=== PATIENT | male | born 1975 | race Caucasian/White ===

== ENCOUNTER 2017-12-03 18:48 | Emergency (ER) | payer SELFPAY ==
[2014-08-01 09:44] VITALS: BMI 51.6
[~2017-12-03 18:48] MED LIST: AMPH20TA18 PO; BUP100 PO; IBUP400T13 PO; NALT50TA15 PO; TRAZ-133 PO
--- NOTE | 2017-12-03 19:00 | ER Report ---
History and Physical Time Seen By MD: 19:00 HPI/ROS Patient is a 42 y.o. male reporting chest pain and lightheadedness for 1 day. Symptoms do not seem tied to a specific activity. His mother is present and reports that he is frequently intoxicated but usually will tell me when he has been drinking ETOH. He denies this today. No prior history of cardiac or resp issues. No SOB, fevers, chills, N/V/D or constipation. Patient denies neuro issues. He is a 1/2 ppd smoker and drinks 1 pint of vodka most days. He denies illicit drug use. He started a new medication for his BP two days ago but cannot recall what it is. Allergies: Coded Allergies: No Known Drug Allergies (Unverified , 10/15/16) Home Meds Unable to Obtain Active Prescriptions or Reported Meds Past Medical/Surgical History depression, HTN Hx Smoking: Yes Smoking Status: Current: Every Day Smoker Hx Substance Use Disorder: Yes Hx Alcohol Use: Yes Constitutional Vital Sign - Last 24 Hours 12/03/17 12/03/17 12/03/17 12/03/17 18:58 18:59 19:01 19:02 Temp 97.6 Pulse 116 Resp 18 B/P (MAP) 139/77 139/77 (97) 146/98 (114) 140/92 (108) O2 Delivery Room Air 12/03/17 12/03/17 12/03/17 12/03/17 19:03 19:18 19:25 19:32 Pulse 112 101 Resp 60 B/P (MAP) 124/75 (91) Pulse Ox 92 86 O2 Flow Rate 2.0 12/03/17 12/03/17 12/03/17 12/03/17 19:33 19:45 19:50 20:00 Pulse 98 88 B/P (MAP) 132/74 (93) 121/68 (85) Pulse Ox 94 94 12/03/17 12/03/17 12/03/17 12/03/17 20:05 20:15 20:20 20:30 Pulse 97 99 B/P (MAP) 129/67 (87) ???/??? (1665) Pulse Ox 93 98 12/03/17 12/03/17 12/03/17 12/03/17 20:35 20:45 20:50 21:00 Pulse ??? 100 B/P (MAP) 129/80 (96) 125/76 (92) Pulse Ox 98 12/03/17 21:05 Pulse 97 Pulse Ox 96 Intake and Output 12/03/17 12/03/17 12/04/17 15:00 23:00 07:00 Intake Total 1000 ml Balance 1000 ml Physical Exam General: Calm and under no acute distress Eyes: EOM and pupillary response intact but delayed Resp: Clear and equal bilaterally CV: RRR, no murmurs, rubs, or gallops. Distal pulses strong and equal. Abdomen: Tender in RUQ, active bowel sounds x4Q Neuro: GCS 13, oriented to person and place. CN II-XII grossly intact Medical Decision Making Data Points Result Diagram: 12/03/17193912/03/171939 Laboratory Hematology Test 12/03/17 19:40 12/03/17 21:20 Red Blood Count 5.42 M/uL (4.00-5.60) Mean Corpuscular Volume 89.3 fL (80.0-96.0) Mean Corpuscular Hemoglobin 30.9 pg (26.0-33.0) Mean Corpuscular Hemoglobin Concent 34.6 g/dL (32.0-36.0) Red Cell Distribution Width 14.9 % (11.5-14.5) Mean Platelet Volume 8.2 fL (7.2-11.1) Neutrophils (%) (Auto) 56.5 % (39.4-72.5) Lymphocytes (%) (Auto) 28.3 % (17.6-49.6) Monocytes (%) (Auto) 12.1 % (4.1-12.4) Eosinophils (%) (Auto) 1.8 % (0.4-6.7) Basophils (%) (Auto) 1.3 % (0.3-1.4) Nucleated RBC Relative Count (auto) 0.1 /100WBC Neutrophils # (Auto) 3.2 K/uL (2.0-7.4) Lymphocytes # (Auto) 1.6 K/uL (1.3-3.6) Monocytes # (Auto) 0.7 K/uL (0.3-1.0) Eosinophils # (Auto) 0.1 K/uL (0.0-0.5) Basophils # (Auto) 0.1 K/uL (0.0-0.1) Nucleated RBC Absolute Count (auto) 0.00 K/uL Sodium Level 137 mmol/L (137-145) Potassium Level 3.5 mmol/L (3.5-5.0) Chloride Level 98 mmol/L (98-107) Carbon Dioxide Level 24 mmol/L (22-30) Blood Urea Nitrogen 6 mg/dl (9-21) Creatinine 0.80 mg/dl (0.66-1.25) Glomerular Filtration Rate Calc > 60.0 Random Glucose 124 mg/dl (75-110) Calcium Level 9.2 mg/dl (8.4-10.2) Total Bilirubin 0.4 mg/dl (0.2-1.3) Aspartate Amino Transf (AST/SGOT) 24 U/L (0-35) Alanine Aminotransferase (ALT/SGPT) 32 U/L (0-56) Alkaline Phosphatase 82 U/L (0-126) Troponin I < 0.012 ng/ml B-Type Natriuretic Peptide 8 pg/ml (0-100) Total Protein 7.0 gm/dl (6.3-8.2) Albumin 3.8 g/dl (3.5-5.0) Serum Alcohol 10 mg/dl Urine Color Colorless Urine Clarity Clear Urine pH 7.0 pH (4.8-9.5) Urine Specific [place] 1.002 Urine Protein Negative mg/dL (NEGATIVE) Urine Glucose (UA) Negative mg/dL (NEGATIVE) Urine Ketones 20 mg/dL (NEGATIVE) Urine Blood Negative (NEGATIVE) Urine Nitrite Negative (NEGATIVE) Urine Bilirubin Negative (NEGATIVE) Urine Urobilinogen Negative mg/dL (0.2-1.9) Urine Leukocyte Esterase Negative (NEGATIVE) Urine RBC None /HPF (0-2/HPF) Urine WBC None /HPF (0-5/HPF) Urine Squamous Epithelial Cells None /LPF (</=FEW) Urine Bacteria Negative /HPF (NONE-FEW) Urine Mucus None /HPF (NONE-FEW) Urine Opiates Screen Negative Urine Barbiturates Screen Negative Ur Tricyclic Antidepressants Screen Negative Urine Phencyclidine Screen Negative Urine Amphetamines Screen Negative Urine Benzodiazepines Screen Negative Urine Cocaine Screen Negative Urine Cannabinoids Screen Negative Chemistry Test 12/03/17 19:40 12/03/17 21:20 White Blood Count 5.6 k/uL (4.5-11.0) Red Blood Count 5.42 M/uL (4.00-5.60) Hemoglobin 16.8 g/dL (14.0-18.0) Hematocrit 48.4 % (42.0-52.0) Mean Corpuscular Volume 89.3 fL (80.0-96.0) Mean Corpuscular Hemoglobin 30.9 pg (26.0-33.0) Mean Corpuscular Hemoglobin Concent 34.6 g/dL (32.0-36.0) Red Cell Distribution Width 14.9 % (11.5-14.5) Platelet Count 223 K/uL (150-450) Mean Platelet Volume 8.2 fL (7.2-11.1) Neutrophils (%) (Auto) 56.5 % (39.4-72.5) Lymphocytes (%) (Auto) 28.3 % (17.6-49.6) Monocytes (%) (Auto) 12.1 % (4.1-12.4) Eosinophils (%) (Auto) 1.8 % (0.4-6.7) Basophils (%) (Auto) 1.3 % (0.3-1.4) Nucleated RBC Relative Count (auto) 0.1 /100WBC Neutrophils # (Auto) 3.2 K/uL (2.0-7.4) Lymphocytes # (Auto) 1.6 K/uL (1.3-3.6) Monocytes # (Auto) 0.7 K/uL (0.3-1.0) Eosinophils # (Auto) 0.1 K/uL (0.0-0.5) Basophils # (Auto) 0.1 K/uL (0.0-0.1) Nucleated RBC Absolute Count (auto) 0.00 K/uL Glomerular Filtration Rate Calc > 60.0 Calcium Level 9.2 mg/dl (8.4-10.2) Total Bilirubin 0.4 mg/dl (0.2-1.3) Aspartate Amino Transf (AST/SGOT) 24 U/L (0-35) Alanine Aminotransferase (ALT/SGPT) 32 U/L (0-56) Alkaline Phosphatase 82 U/L (0-126) Troponin I < 0.012 ng/ml B-Type Natriuretic Peptide 8 pg/ml (0-100) Total Protein 7.0 gm/dl (6.3-8.2) Albumin 3.8 g/dl (3.5-5.0) Serum Alcohol 10 mg/dl Urine Color Colorless Urine Clarity Clear Urine pH 7.0 pH (4.8-9.5) Urine Specific [place] 1.002 Urine Protein Negative mg/dL (NEGATIVE) Urine Glucose (UA) Negative mg/dL (NEGATIVE) Urine Ketones 20 mg/dL (NEGATIVE) Urine Blood Negative (NEGATIVE) Urine Nitrite Negative (NEGATIVE) Urine Bilirubin Negative (NEGATIVE) Urine Urobilinogen Negative mg/dL (0.2-1.9) Urine Leukocyte Esterase Negative (NEGATIVE) Urine RBC None /HPF (0-2/HPF) Urine WBC None /HPF (0-5/HPF) Urine Squamous Epithelial Cells None /LPF (</=FEW) Urine Bacteria Negative /HPF (NONE-FEW) Urine Mucus None /HPF (NONE-FEW) Urine Opiates Screen Negative Urine Barbiturates Screen Negative Ur Tricyclic Antidepressants Screen Negative Urine Phencyclidine Screen Negative Urine Amphetamines Screen Negative Urine Benzodiazepines Screen Negative Urine Cocaine Screen Negative Urine Cannabinoids Screen Negative Toxicology Test 12/03/17 19:40 12/03/17 21:20 Serum Alcohol 10 mg/dl Urine Opiates Screen Negative Urine Barbiturates Screen Negative Ur Tricyclic Antidepressants Screen Negative Urine Phencyclidine Screen Negative Urine Amphetamines Screen Negative Urine Benzodiazepines Screen Negative Urine Cocaine Screen Negative Urine Cannabinoids Screen Negative Urinalysis Test 12/03/17 21:20 Urine Color Colorless Urine Clarity Clear Urine pH 7.0 pH (4.8-9.5) Urine Specific [place] 1.002 Urine Protein Negative mg/dL (NEGATIVE) Urine Glucose (UA) Negative mg/dL (NEGATIVE) Urine Ketones 20 mg/dL (NEGATIVE) Urine Blood Negative (NEGATIVE) Urine Nitrite Negative (NEGATIVE) Urine Bilirubin Negative (NEGATIVE) Urine Urobilinogen Negative mg/dL (0.2-1.9) Urine Leukocyte Esterase Negative (NEGATIVE) Urine RBC None /HPF (0-2/HPF) Urine WBC None /HPF (0-5/HPF) Urine Squamous Epithelial Cells None /LPF (</=FEW) Urine Bacteria Negative /HPF (NONE-FEW) Urine Mucus None /HPF (NONE-FEW) EKG/Imaging EKG Interpretation 12 lead EKG: Rhythm: Sinus tachycardia with a ventricular rate of 102 bpm [place]: normal QRS: normal ST segments: normal Imaging CHEST PA AND LAT Additional pertinent History: Chest pain COMPARISON STUDIES: none FINDINGS: Support lines and catheters: None Lungs and Pleura: Lung anderson well expanded with no infiltrates or consolidations. No parenchymal mass lesions are seen. There are no effusions Heart and vasculature: Negative. Gavi and Mediastinum: Negative. Bones and Chest wall: Negative. Upper Abdomen: Negative. IMPRESSION: 1. Negative chest for acute cardiopulmonary disease. Report Dictated By: Pipe Santiago MD at 12/03/2017 9:05 PM Report E-Signed By: Pipe Santiago MD at 12/03/2017 9:06 PM ED Course/Re-evaluation ED Course Patient admitted to ER with c/o chest pain and lightheadedness. Patient examined. IV with NS started for fluid resuscitation. CBC w/ diff, CMP, Troponin I, BNP, ETOH, and urinary tox screen order, showing recent ETOH use. CXR and EKG negative. Patient discharged with ETOH education. This does not appear to be related to a cardiac event. We'll go ahead and discharge patient home. He is to continue with normal medications, he is to follow-up with his primary care provider in the next 3-5 days. He is return to the emergency room if condition worsens. I would like patient to limit alcohol consumption. I discussed the patient and his family verbalized understanding and agreement with plan. Decision to Disposition Date: Dec 03, 2017 Decision to Disposition Time: 21:21 Depart Departure Latest Vital Signs Vital Signs Date Time Temp Pulse Resp B/P (MAP) Pulse Ox O2 Delivery O2 Flow Rate FiO2 12/03/17 21:05 97 96 12/03/17 21:00 125/76 (92) 12/03/17 19:25 2.0 12/03/17 19:18 60 12/03/17 18:58 97.6 Room Air Impression: Primary Impression: Chest pain Condition: Improved Disposition: HOME OR SELF-CARE New Scripts Unable to Obtain Active Prescriptions or Reported Meds Patient Instructions: Chest Pain (ED) Additional Instructions: Increase fluid intake. Get plenty of rest. Limit activity by pain. Continue with current medications. Follow up with your primary care provider in the next 3-5 days. Return to the ER if condition worsens. This doesn't appear to be cardiac related, but I would like you to follow up with your primary care provider to find the cause. Problem Qualifiers Primary Impression: Chest pain Chest pain type: other chest pain Qualified Codes: R07.89 - Other chest pain RHYS RUSS Dec 03, 2017 19:00
[2017-12-03] MEDS ORDERED: NS(*) 0.9% 1000 ML BAG 1,000 ML IV ONE (19:20)
--- NOTE | 2017-12-03 19:36 | EKG ---
FACILITY: [facility] PATIENT NAME: VENTURA ENRIQUE : [id number] MR: [id number] V: [id number] EXAM DATE: ORDERING PHYSICIAN: RHYS RUSS TECHNOLOGIST: PRADIP Test Reason : CHEST PAIN Blood Pressure : / mmHG Vent. Rate : 102 BPM Atrial Rate : 102 BPM P-R Int : 144 ms QRS Dur : 094 ms QT Int : 370 ms P-R-T Axes : 058 080 067 degrees QTc Int : 482 ms Sinus tachycardia No acute appearing findings Confirmed by MIKEY ANNA ([id number] on 12/04/2017 6:11:10 AM Referred By: Confirmed By:MIKEY ANNA
[2017-12-03 19:46] LABS: PLATELET COUNT, AUTOMATED 223 K/uL (150-450)
[2017-12-03 21:00] VITALS: BP 125/76
--- NOTE | 2017-12-03 21:11 | RADIOLOGY IMAGING REPORT ---
FACILITY: [facility] PATIENT NAME: Sabas Dalton : 1975 MR: [id number] V: [id number] EXAM DATE: ORDERING PHYSICIAN: RHYS RUSS TECHNOLOGIST: Location: [facility] [place] Patient: Sabas Dalton : 1975 Visit/Account:[id number] Date of Sevice: 12/03/2017 CHEST PA AND LAT Additional pertinent History: Chest pain COMPARISON STUDIES: none FINDINGS: Support lines and catheters: None Lungs and Pleura: Lung anderson well expanded with no infiltrates or consolidations. No parenchymal ma ss lesions are seen. There are no effusions Heart and vasculature: Negative. Gavi and Mediastinum: Negative. Bones and Chest wall: Negative. Upper Abdomen: Negative. IMPRESSION: 1. Negative chest for acute cardiopulmonary disease. Report Dictated By: Pipe Santiago MD at 12/03/2017 9:05 PM Report E-Signed By: Pipe Santiago MD at 12/03/2017 9:06 PM WSN:[id number]
== END 2017-12-03 21:31 | disposition home or self-care (01) ==
LOC: ER 19:03
DX: R07.89 Other chest pain (principal); F17.210 Nicotine dependence, cigarettes, uncomplicated; F10.10 Alcohol abuse, uncomplicated; R00.0 Tachycardia, unspecified
CPT/HCPCS: 80305; 80320; 81001; 83880; 84484; 85025; 93005; 96360; 96361; 99284; J7030; 71046; 82040; 82247; 82310; 82374; 82435; 82565; 82947; 84075; 84132; 84155; 84295; 84450; 84460; 84520

== ENCOUNTER → 2018-06-09 | Outpatient (REF) ==
[2014-08-01 09:44] VITALS: BMI 51.6
--- NOTE | 2018-06-09 13:45 | RADIOLOGY IMAGING REPORT ---
FACILITY: [facility] PATIENT NAME: Sabas Dalton : 1975 MR: [id number] V: [id number] EXAM DATE: ORDERING PHYSICIAN: JAVY KILPATRICK TECHNOLOGIST: Location: [facility] [place] Patient: Sabas Dalton : 1975 Visit/Account:[id number] Date of Sevice: 06/09/2018 Exam type: FINGER RIGHT 5TH DIGIT History: Hyperextended fourth and fifth fingers with pain and swelling Comparison: None. Findings: Three views of the right finger demonstrate mild soft tissue swelling although no evidence of acute f racture dislocation or significant arthritic change seen IMPRESSION: 1. Mild soft tissue spine about the right fifth finger although no evidence of acute fracture or dis location seen Report Dictated By: Gabrielle Umana MD at 06/09/2018 1:32 PM Report E-Signed By: Gabrielle Umana MD at 06/09/2018 1:41 PM WSN:[email or web address]
--- NOTE | 2018-06-09 13:48 | RADIOLOGY IMAGING REPORT ---
[place] [facility] [place] NAME[place] Sabas Dalton : 1975 MR: [id number] V: [id number] EXAM DATE: ORDERING PHYSICIAN: JAVY KILPATRICK [place]CHNOLOG[place]: [place] [facility] [place] Sabas [place] : 1975 Visit/Account:[id number] Date of Sevice: 06/09/2018 Exam type: FINGER RIGHT 4TH DIGIT History: Hyperexpansion of the right fourth and fifth fingers with swelling and pain Comparison: None. Findings: There is moderate soft tissue swelling surrounding the PIP joint of the right fourth finger. No unde rlying fracture dislocation is seen although the PIP joint on the right fourth finger is obscured on the lateral view by the overlapping proximal phalanges IMPRESSION: 1. Moderate soft tissue spine about the. PIP joint of the right fourth finger although no gross vadim dence of acute fracture or dislocation Report Dictated By: Gabrielle Umana MD at 06/09/2018 1:41 PM Report E-Signed By: Gabrielle Umana MD at 06/09/2018 1:44 PM WSN:[email or web address]
== END ==
LOC: RAD 10:30
PROVIDERS: ATTEND Family Medicine
DX: M79.644 Pain in right finger(s) (principal); M25.541 Pain in joints of right hand

== ENCOUNTER 2018-12-06 16:02 | Emergency (ER) | payer SELFPAY ==
[2014-08-01 09:44] VITALS: Wt 190.7 kg
--- NOTE | 2018-12-06 16:24 | ER Report ---
History and Physical Time Seen By MD: 16:24 Hx. of Stated Complaint: intoxicated HPI/ROS CHIEF COMPLAINT: Alcohol intoxication HISTORY OF PRESENT ILLNESS: 43-year-old male patient presents to emergency room with complaint of alcohol intoxication. Patient states he believes is very dehydrated. He states he drank 3 pints of vodka. Patient states that he has no interest in going to [facility] this time. He denies any fevers, chills, nausea, vomiting or diarrhea. Patient denies any back pain. Patient states that he has been drinking since 7:00 this morning. Patient's family states that he has a problem with alcohol abuse. Stating that he does not drink everyday, but when he does drink he drinks heavily. They state that he has had multiple falls because of that. Due to his size they're concerned about him injuring himself or others. His mother states that she would prefer that he stay, however if he chose not to be admitted that he is not welcome in her home. He is supposed to discuss rehabilitation options with [facility] on according to family. REVIEW OF SYSTEMS: Respiratory: No cough, no dyspnea. Cardiovascular: No chest pain, no palpitations. Gastrointestinal: No vomiting, no abdominal pain. Musculoskeletal: No back pain. Allergies: Coded Allergies: No Known Drug Allergies (Unverified , 10/15/16) Home Meds Reported Medications Ibuprofen (ADVIL) 100 Mg Tablet, 1 TAB PO Q6H 12/06/18 Losartan Potassium (LOSARTAN POTASSIUM) 50 Mg Tablet, 50 MG PO QDAY 12/06/18 Citalopram Hydrobromide (CELEXA) 40 Mg Tablet, 50 MG PO QDAY, #5 TAB 12/06/18 Past Medical/Surgical History Patient has a past medical history of reflux, Claritin fracture, tinnitus, substance abuse, alcohol abuse, depression. Patient has no pertinent surgical history. Patient has a family medical history of cancer, CAD, diabetes, depression, alcoholism. Reviewed Nurses Notes: Yes Hx Smoking: Yes Smoking Status: Current: Every Day Smoker Hx Substance Use Disorder: Yes Hx Alcohol Use: Yes (every other day heavy ) Constitutional Vital Sign - Last 24 Hours 12/06/18 12/06/18 12/06/18 12/06/18 16:02 16:16 16:17 16:17 Temp 98.0 Pulse ??? 89 90 Resp 18 B/P (MAP) 147/90 (109) 147/90 Pulse Ox 84 84 O2 Delivery Room Air 12/06/18 12/06/18 12/06/18 12/06/18 16:32 16:47 17:02 17:05 Pulse 83 92 85 Resp 18 25 B/P (MAP) 123/79 (94) Pulse Ox 93 95 12/06/18 12/06/18 12/06/18 12/06/18 17:17 17:32 17:35 17:36 Pulse 86 78 Resp 19 23 B/P (MAP) 108/83 (91) O2 Flow Rate 2.0 12/06/18 12/06/18 17:47 18:00 Pulse 81 Resp 14 B/P (MAP) ???/??? (1665) Physical Exam General Appearance: The patient is alert, has no immediate need for airway protection and no current signs of toxicity. Patient smells of alcohol. Respiratory: Chest is non tender, lungs are clear to auscultation. Cardiac: regular rate and rhythm Gastrointestinal: Abdomen is soft and non tender, no masses, bowel sounds normal. Musculoskeletal: Neck: Neck is supple and non tender. Extremities have full range of motion and are non tender. Skin: No rashes or lesions. DIFFERENTIAL DIAGNOSIS: After history and physical exam differential diagnosis was considered for occult intoxication, alcohol abuse, alcohol dependence. Medical Decision Making Data Points Result Diagram: 12/06/18 1708 12/06/18 170 Laboratory Hematology Test 12/06/18 16:50 12/06/18 17:08 Urine Color Straw Urine Clarity Clear Urine pH 6.0 pH (4.8-9.5) Urine Specific [place] 1.003 Urine Protein Negative mg/dL (NEGATIVE) Urine Glucose (UA) Negative mg/dL (NEGATIVE) Urine Ketones Negative mg/dL (NEGATIVE) Urine Blood Negative (NEGATIVE) Urine Nitrite Negative (NEGATIVE) Urine Bilirubin Negative (NEGATIVE) Urine Urobilinogen Negative mg/dL (0.2-1.9) Urine Leukocyte Esterase Negative (NEGATIVE) Urine RBC <1 /HPF (0-2/HPF) Urine WBC None /HPF (0-5/HPF) Urine Squamous Epithelial Cells None /LPF (</=FEW) Urine Bacteria Negative /HPF (NONE-FEW) Urine Mucus None /HPF (NONE-FEW) Urine Opiates Screen Negative Urine Barbiturates Screen Negative Ur Tricyclic Antidepressants Screen Negative Urine Phencyclidine Screen Negative Urine Amphetamines Screen Negative Urine Benzodiazepines Screen Negative Urine Cocaine Screen Negative Urine Cannabinoids Screen Negative Red Blood Count 5.21 M/uL (4.00-5.60) Mean Corpuscular Volume 96.2 fL (80.0-96.0) Mean Corpuscular Hemoglobin 32.1 pg (26.0-33.0) Mean Corpuscular Hemoglobin Concent 33.4 g/dL (32.0-36.0) Red Cell Distribution Width 14.7 % (11.5-14.5) Mean Platelet Volume 8.2 fL (7.2-11.1) Neutrophils (%) (Auto) 60.3 % (39.4-72.5) Lymphocytes (%) (Auto) 25.3 % (17.6-49.6) Monocytes (%) (Auto) 11.0 % (4.1-12.4) Eosinophils (%) (Auto) 2.2 % (0.4-6.7) Basophils (%) (Auto) 1.2 % (0.3-1.4) Nucleated RBC Relative Count (auto) 0.1 /100WBC Neutrophils # (Auto) 3.5 K/uL (2.0-7.4) Lymphocytes # (Auto) 1.5 K/uL (1.3-3.6) Monocytes # (Auto) 0.6 K/uL (0.3-1.0) Eosinophils # (Auto) 0.1 K/uL (0.0-0.5) Basophils # (Auto) 0.1 K/uL (0.0-0.1) Nucleated RBC Absolute Count (auto) 0.01 K/uL Sodium Level 141 mmol/L (137-145) Potassium Level 4.4 mmol/L (3.5-5.0) Chloride Level 108 mmol/L (98-107) Carbon Dioxide Level 25 mmol/L (22-30) Blood Urea Nitrogen 9 mg/dl (9-21) Creatinine 0.70 mg/dl (0.66-1.25) Glomerular Filtration Rate Calc > 60.0 Random Glucose 117 mg/dl (75-110) Calcium Level 8.7 mg/dl (8.4-10.2) Magnesium Level 2.2 mg/dl (1.7-2.2) Total Bilirubin < 0.1 mg/dl (0.2-1.3) Aspartate Amino Transf (AST/SGOT) 43 U/L (0-35) Alanine Aminotransferase (ALT/SGPT) 54 U/L (0-56) Alkaline Phosphatase 89 U/L (0-126) Total Protein 6.5 g/dl (6.3-8.2) Albumin 3.7 g/dl (3.5-5.0) Salicylates Level < 10 mg/L Salicylate Last Dose Date unk Acetaminophen Level < 10 ug/ml Serum Alcohol 341 mg/dl Chemistry Test 12/06/18 16:50 12/06/18 17:08 Urine Color Straw Urine Clarity Clear Urine pH 6.0 pH (4.8-9.5) Urine Specific [place] 1.003 Urine Protein Negative mg/dL (NEGATIVE) Urine Glucose (UA) Negative mg/dL (NEGATIVE) Urine Ketones Negative mg/dL (NEGATIVE) Urine Blood Negative (NEGATIVE) Urine Nitrite Negative (NEGATIVE) Urine Bilirubin Negative (NEGATIVE) Urine Urobilinogen Negative mg/dL (0.2-1.9) Urine Leukocyte Esterase Negative (NEGATIVE) Urine RBC <1 /HPF (0-2/HPF) Urine WBC None /HPF (0-5/HPF) Urine Squamous Epithelial Cells None /LPF (</=FEW) Urine Bacteria Negative /HPF (NONE-FEW) Urine Mucus None /HPF (NONE-FEW) Urine Opiates Screen Negative Urine Barbiturates Screen Negative Ur Tricyclic Antidepressants Screen Negative Urine Phencyclidine Screen Negative Urine Amphetamines Screen Negative Urine Benzodiazepines Screen Negative Urine Cocaine Screen Negative Urine Cannabinoids Screen Negative White Blood Count 5.8 k/uL (4.5-11.0) Red Blood Count 5.21 M/uL (4.00-5.60) Hemoglobin 16.8 g/dL (14.0-18.0) Hematocrit 50.1 % (42.0-52.0) Mean Corpuscular Volume 96.2 fL (80.0-96.0) Mean Corpuscular Hemoglobin 32.1 pg (26.0-33.0) Mean Corpuscular Hemoglobin Concent 33.4 g/dL (32.0-36.0) Red Cell Distribution Width 14.7 % (11.5-14.5) Platelet Count 241 K/uL (150-450) Mean Platelet Volume 8.2 fL (7.2-11.1) Neutrophils (%) (Auto) 60.3 % (39.4-72.5) Lymphocytes (%) (Auto) 25.3 % (17.6-49.6) Monocytes (%) (Auto) 11.0 % (4.1-12.4) Eosinophils (%) (Auto) 2.2 % (0.4-6.7) Basophils (%) (Auto) 1.2 % (0.3-1.4) Nucleated RBC Relative Count (auto) 0.1 /100WBC Neutrophils # (Auto) 3.5 K/uL (2.0-7.4) Lymphocytes # (Auto) 1.5 K/uL (1.3-3.6) Monocytes # (Auto) 0.6 K/uL (0.3-1.0) Eosinophils # (Auto) 0.1 K/uL (0.0-0.5) Basophils # (Auto) 0.1 K/uL (0.0-0.1) Nucleated RBC Absolute Count (auto) 0.01 K/uL Glomerular Filtration Rate Calc > 60.0 Calcium Level 8.7 mg/dl (8.4-10.2) Magnesium Level 2.2 mg/dl (1.7-2.2) Total Bilirubin < 0.1 mg/dl (0.2-1.3) Aspartate Amino Transf (AST/SGOT) 43 U/L (0-35) Alanine Aminotransferase (ALT/SGPT) 54 U/L (0-56) Alkaline Phosphatase 89 U/L (0-126) Total Protein 6.5 g/dl (6.3-8.2) Albumin 3.7 g/dl (3.5-5.0) Salicylates Level < 10 mg/L Salicylate Last Dose Date unk Acetaminophen Level < 10 ug/ml Serum Alcohol 341 mg/dl Toxicology Test 12/06/18 16:50 12/06/18 17:08 Urine Opiates Screen Negative Urine Barbiturates Screen Negative Ur Tricyclic Antidepressants Screen Negative Urine Phencyclidine Screen Negative Urine Amphetamines Screen Negative Urine Benzodiazepines Screen Negative Urine Cocaine Screen Negative Urine Cannabinoids Screen Negative Salicylates Level < 10 mg/L Salicylate Last Dose Date unk Acetaminophen Level < 10 ug/ml Serum Alcohol 341 mg/dl Urinalysis Test 12/06/18 16:50 Urine Color Straw Urine Clarity Clear Urine pH 6.0 pH (4.8-9.5) Urine Specific [place] 1.003 Urine Protein Negative mg/dL (NEGATIVE) Urine Glucose (UA) Negative mg/dL (NEGATIVE) Urine Ketones Negative mg/dL (NEGATIVE) Urine Blood Negative (NEGATIVE) Urine Nitrite Negative (NEGATIVE) Urine Bilirubin Negative (NEGATIVE) Urine Urobilinogen Negative mg/dL (0.2-1.9) Urine Leukocyte Esterase Negative (NEGATIVE) Urine RBC <1 /HPF (0-2/HPF) Urine WBC None /HPF (0-5/HPF) Urine Squamous Epithelial Cells None /LPF (</=FEW) Urine Bacteria Negative /HPF (NONE-FEW) Urine Mucus None /HPF (NONE-FEW) ED Course/Re-evaluation ED Course Patient was admitted to an exam room, history and physical were obtained. Differential diagnoses were considered. On examination lungs are clear, heart was regular, abdomen soft nontender, patient did smell of alcohol and was slurring his speech. An IV was started, lab work for a behavioral health admission were done. Initially patient states he did not want to be admitted to [facility]. Patient had a blood alcohol of 341. We did opt to monitor him. The patient was admitted to the ER I did talk with his mother and sister. They stated that if he did not choose to admitted to the behavioral health unit that they would want him to know that he was not welcome at his mother's home. As patient sobered up during his visit here I did explain to him that he had options if he did not want to go up to behavioral health. But would not be able to discharge him to his house. Patient verbalized understanding. He states he was unsure what he wanted to. He did ask what I would recommend. Due to the patient having significant alcohol abuse issues and not being welcome home is my opinion that the patient should be admitted to behavioral health that we will can transition him to an inpatient therapy facility for treatment of his alcohol ism. Patient did verbalize agreement with that. He did sign in voluntarily. I discussed the case with Dr. Mirza, psychiatrist, who agreed to accept the patient for admission to behavioral health unit. Decision to Disposition Date: Dec 06, 2018 Decision to Disposition Time: 19:35 Depart Departure Latest Vital Signs Vital Signs Date Time Temp Pulse Resp B/P (MAP) Pulse Ox O2 Delivery O2 Flow Rate FiO2 12/06/18 18:00 ???/??? (1665) 12/06/18 17:47 81 14 12/06/18 17:35 2.0 12/06/18 17:02 95 12/06/18 16:17 98.0 Room Air Impression: Primary Impression: Alcohol intoxication Condition: Condition Unchanged Disposition: XFER TO [facility] Problem Qualifiers Primary Impression: Alcohol intoxication Complication of substance-induced condition: uncomplicated Qualified Codes: F10.920 - Alcohol use, unspecified with intoxication, uncomplicated RHYS RUSS [facility] Dec 06, 2018 16:24
[2018-12-06] MEDS ORDERED: THIAMINE HCL(*) 200 MG/2 ML IN 100 MG, FOLIC ACID(*) 50 MG/10 ML INJ 1 MG, MULTIVITAMIN... IV ONE (16:30)
[2018-12-06] MEDS ORDERED: NICOTINE INH SYSTEM 10 MG/INH INH PRN (16:40)
[2018-12-06 17:18] LABS: PLATELET COUNT, AUTOMATED 241 K/uL (150-450)
[2018-12-06] MEDS ORDERED: CITA-157 PO (21:46)
[2018-12-06] MEDS ORDERED: IBUP100T51 PO (21:46)
[2018-12-06] MEDS ORDERED: LOSA50TA80 PO (21:46)
[2018-12-06] MEDS ORDERED: TRIAMCINOLONE ACE 0.1% CR 15GM TP ONE (21:55)
== END 2018-12-06 22:20 ==
LOC: ER 16:18
DX: F10.120 Alcohol abuse with intoxication, uncomplicated (principal); Y90.8 Blood alcohol level of 240 mg/100 ml or more; F17.210 Nicotine dependence, cigarettes, uncomplicated
CPT/HCPCS: 36415; 80305; 80320; 80329; 81001; 83735; 84443; 85025; 96360; 99284; J3411; J3475; J7030; 82040; 82247; 82310; 82374; 82435; 82565; 82947; 84075; 84132; 84155; 84295; 84450; 84460; 84520

== ENCOUNTER 2018-12-06 21:39 | Inpatient (IN) | payer SELFPAY ==
[2014-08-01 09:44] VITALS: Ht 175.3 cm; Wt 181.4 kg
[~2018-12-06] VITALS: Ht 175.3 cm; Wt 181.4 kg
[2018-12-06] MEDS ORDERED: ACETAMINOPHEN 325 MG TAB PO PRN (21:45)
[2018-12-06] MEDS ORDERED: MAG HYD/AL HYD/SIMETH 30ML UDC PO PRN (21:45)
[2018-12-06] MEDS ORDERED: DIAZEPAM 10 MG TAB PO PRN ×2 (21:45)
[2018-12-06] MEDS ORDERED: LOSA50TA80 PO (21:46)
[2018-12-06] MEDS ORDERED: IBUP100T51 PO (21:46)
[2018-12-06] MEDS ORDERED: CITA-157 PO (21:46)
[2018-12-06 23:25] VITALS: BP 143/89
[2018-12-06] MEDS: NICOTINE INH SYSTEM 10 MG/INH INH PRN (23:31)
[2018-12-07 00:30] VITALS: BP 142/100
[2018-12-07 03:01] VITALS: BP 133/81
[2018-12-07] MEDS: NICOTINE INH SYSTEM 10 MG/INH INH PRN (03:07)
[2018-12-07 08:15] VITALS: BP 155/91
[2018-12-07] MEDS: THIAMINE HCL 100 MG TAB PO SCH (08:34)
[2018-12-07] MEDS: FOLIC ACID 1 MG TAB PO SCH (08:34)
[2018-12-07] MEDS ORDERED: THIAMINE HCL 100 MG TAB PO SCH (09:00)
[2018-12-07] MEDS ORDERED: THIAMINE HCL 200 MG/2 ML INJ IVP SCH (09:00)
[2018-12-07 11:50] VITALS: BP 153/96
--- NOTE | 2018-12-07 14:12 | NUR ---
AT AROUND NOON DR. NANCE WAS ADVISED THAT THIS PT'S CIWA SCORE WAS A 10. DR. NANCE ADVISED ME TO HOLD HIS DOSE OF VALIUM.
[2018-12-07 14:35] VITALS: BP 164/99
[2018-12-07] MEDS: CITALOPRAM HYDROBROM 20 MG TAB PO SCH (14:41)
[2018-12-07] MEDS ORDERED: LOPERAMIDE HCL 2 MG CAP PO ONE (15:45)
[2018-12-07] MEDS ORDERED: LOPERAMIDE HCL 2 MG CAP PO PRN (15:45)
[2018-12-07 19:42] VITALS: BP 149/93
--- NOTE | 2018-12-07 19:49 | NUR ---
REPORT FROM DON/RN. WILL ASSUME CARE OF PT AT THIS TIME. PT SITTING IN LOUNGE CHAIR, READING BOOK. CIWA REMAINS LOW AT 4. NO COMPLAINTS AT THIS TIME. NO DISTRESS AT THIS TIME. VISITOR FROM [facility] HERE TO VISIT ANOTHER PT AND HAS INVITED VENTURA TO MEETING. VENTURA REFUSED, STATES "[facility] DOESN'T HELP ME".
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
[2018-12-08 06:19] VITALS: BP 127/84
[2018-12-08] MEDS: THIAMINE HCL 100 MG TAB PO SCH (08:54)
[2018-12-08] MEDS: CITALOPRAM HYDROBROM 20 MG TAB PO SCH (08:54)
[2018-12-08] MEDS: FOLIC ACID 1 MG TAB PO SCH (08:54)
[2018-12-08 09:30] VITALS: BP 148/90
--- NOTE | 2018-12-08 11:34 | BHS Progress Note ---
[facility] - Subjective Progress Notes Subjective Pt seen in treatment team meeting with his mother present. Pt reports moderate depression and anxiety. He has not needed any valium for withdrawal, with low CIWA scores. Discussed options for rehab including in-pt programs of 90 days up to 12 months. He prefers 90 day program so as to not risk his job. Mother was supportive. Pt c/o dry skin on feet-- will order kenalog cream. Pt participating in groups and individual therapies actively. Will continue CIWA until this evening at least. Suicidal Ideation: None Homicidal Ideation: None [facility] - Objective Physical Exam Vital Signs Vital Signs 12/07/18 12/08/18 03:01 09:30 Temp 99.1 Pulse 98 Resp 20 B/P (MAP) 148/90 (109) Pulse Ox 90 O2 Delivery Room Air O2 Flow Rate 2.0 Muscle Strength and Tone: WNL Gait and Station: Steady [facility] Medications Reviewed: Side Effects, Benefits of Medication, Risks Allergies Reviewed: Yes Mental Status Exam General Appearance: Casual, Well Groomed, Good Eye Contact, Cooperative, Polite, Good Interaction Speech: Clear, Spontaneous, Normal Rate, Normal Rhythm, Normal Volume, Normal Tone Mood: Dysthmic/Depressed Affect: Calm, Sad Thought Process: Organized, Logical, Goal Directed Thought Content: No Suicidal Ideation, No Homicidal Ideation, No Delusions, No Auditory Halllucinations, No Visual Hallucinations, No Thought Broadcasting, No Ideas of Reference, No Obsessions, No Compulsions, No Other Sensorium: Clear Cognition: Alert & Oriented-Person, Alert & Oriented-Place, Alert & Oriented- Time, Xhure-Rcimguzy-Bqmlirzvm Memory: Immediate, Recent, Remote Intelligence: Average Insight Judgment: Fair [facility] Assessment and Plan [id number] Encounter Date: Dec 08, 2018 [id number] Encounter Time: 08:30 [facility] Plan: Necessary Precautions, Individual/Group Therapy, Admin/Titrate Meds, Educate Patient Tobacco Medications: Not Appropriate Condition Multpiple Antipsychotics Used: No Problems: (1) Persistent depressive disorder (2) Alcohol use disorder, severe, dependence ADAM NANCE MD Dec 08, 2018 11:34
[2018-12-08 13:15] VITALS: BP 145/105
[2018-12-08] MEDS: NICOTINE INH SYSTEM 10 MG/INH INH PRN (14:39)
[2018-12-08] MEDS: LOSARTAN POTASSIUM 50 MG TAB PO SCH (15:18)
[2018-12-08] MEDS: TRIAMCINOLONE ACE 0.1% CR 15GM TP SCH (20:49)
[2018-12-08 21:28] VITALS: BP 146/84
[2018-12-09 06:08] VITALS: BP 148/93
[2018-12-09] MEDS: FOLIC ACID 1 MG TAB PO SCH (08:27)
[2018-12-09] MEDS: THIAMINE HCL 100 MG TAB PO SCH (08:28)
[2018-12-09] MEDS: LOSARTAN POTASSIUM 50 MG TAB PO SCH (08:28)
[2018-12-09] MEDS: CITALOPRAM HYDROBROM 20 MG TAB PO SCH (08:28)
[2018-12-09] MEDS: TRIAMCINOLONE ACE 0.1% CR 15GM TP SCH ×2 (08:49→20:42)
--- NOTE | 2018-12-09 10:17 | BHS Progress Note ---
S - Subjective Progress Notes Subjective Pt seen in conference room with team. Pt describing a "pretty good" mood, Sleeping ok... has some discomfort with back pain and did get up and slept more comfortably in his recliner. We have DC'd LILLY bc he has not been scoring. He is motivated to go to rehab, it looks like there may be a bed available in [place] at [facility] for Thursday. We have faxed application and are waiting for [facility] to submit the [facility]. His TB test will be read this afternoon. He is participating in groups with focus on sobriety skills. Tolerating meds well. B P's still a little high-- will look at increasing his BP med tomorrow if they remain high. Suicidal Ideation: None Homicidal Ideation: None [facility] - Objective Physical Exam Vital Signs Vital Signs 12/07/18 12/09/18 03:01 06:08 Temp 98.1 Pulse 80 Resp 15 B/P (MAP) 148/93 (111) Pulse Ox 90 O2 Delivery Room Air O2 Flow Rate 2.0 Muscle Strength and Tone: WNL Gait and Station: Steady [facility] Medications Reviewed: Side Effects, Benefits of Medication, Risks Allergies Reviewed: Yes Mental Status Exam General Appearance: Casual, Well Groomed, Good Eye Contact, Cooperative, Polite, Good Interaction Speech: Clear, Spontaneous, Normal Rate, Normal Rhythm, Normal Volume, Normal Tone Mood: Dysthmic/Depressed Affect: Calm, Sad Thought Process: Organized, Logical, Goal Directed Thought Content: No Suicidal Ideation, No Homicidal Ideation, No Delusions, No Auditory Halllucinations, No Visual Hallucinations, No Thought Broadcasting, No Ideas of Reference, No Obsessions, No Compulsions, No Other Sensorium: Clear Cognition: Alert & Oriented-Person, Alert & Oriented-Place, Alert & Oriented- Time, Xoono-Fpbjpsna-Ipyyldtfn Memory: Immediate, Recent, Remote Intelligence: Average Insight Judgment: Fair [facility] Assessment and Plan [id number] Encounter Date: Dec 09, 2018 [id number] Encounter Time: 10:00 [facility] Plan: Necessary Precautions, Individual/Group Therapy, Admin/Titrate Meds, Educate Patient Tobacco Medications: Not Appropriate Condition Multpiple Antipsychotics Used: No Problems: (1) Persistent depressive disorder (2) Alcohol use disorder, severe, dependence ADAM NANCE MD Dec 09, 2018 10:17
[2018-12-09] MEDS: NICOTINE INH SYSTEM 10 MG/INH INH PRN (16:27)
[2018-12-09 21:21] VITALS: BP 134/81
[2018-12-10 05:34] VITALS: BP 132/82
[2018-12-10] MEDS: THIAMINE HCL 100 MG TAB PO SCH (08:43)
[2018-12-10] MEDS: LOSARTAN POTASSIUM 50 MG TAB PO SCH (08:43)
[2018-12-10] MEDS: CITALOPRAM HYDROBROM 20 MG TAB PO SCH (08:44)
[2018-12-10] MEDS: FOLIC ACID 1 MG TAB PO SCH (08:44)
[2018-12-10] MEDS: TRIAMCINOLONE ACE 0.1% CR 15GM TP SCH ×2 (08:45→20:45)
[2018-12-10 13:29] VITALS: BP 142/85
--- NOTE | 2018-12-10 15:39 | BHS Progress Note ---
[facility] - Subjective Progress Notes Subjective Pt seen in treatment team with his mother attending. Pt is still having trouble sleeping but says it is mostly the uncomfortable bed-- he got up and slept in recliner. Says his mood is good, he is working hard on sobriety education. He has a bed at [facility] in [place] for Thursday at 3 pm. His mother and sister will be driving him over. We encouraged him to stay in the hospital until Thursday morning, but he wants to go home on Thursday to pack and take care of things before going on Thursday. His mother says she is ok with this plan-- they both understand risk of relapse-- she says she will be with him to help support sobriety. Continue current tx plan. Suicidal Ideation: None Homicidal Ideation: None [facility] - Objective Physical Exam Vital Signs Vital Signs 12/07/18 12/10/18 12/10/18 03:01 05:34 13:29 Temp 97.6 Pulse 86 Resp 15 B/P (MAP) 142/85 (104) Pulse Ox 89 O2 Delivery Room Air O2 Flow Rate 2.0 Muscle Strength and Tone: WNL Gait and Station: Steady [facility] Medications Reviewed: Side Effects, Benefits of Medication, Risks Allergies Reviewed: Yes Mental Status Exam General Appearance: Casual, Well Groomed, Good Eye Contact, Cooperative, Polite, Good Interaction Speech: Clear, Spontaneous, Normal Rate, Normal Rhythm, Normal Volume, Normal Tone Mood: Dysthmic/Depressed Affect: Calm, Sad Thought Process: Organized, Logical, Goal Directed Thought Content: No Suicidal Ideation, No Homicidal Ideation, No Delusions, No Auditory Halllucinations, No Visual Hallucinations, No Thought Broadcasting, No Ideas of Reference, No Obsessions, No Compulsions, No Other Sensorium: Clear Cognition: Alert & Oriented-Person, Alert & Oriented-Place, Alert & Oriented-Time, [id number]-[id number]-[id number] Memory: Immediate, Recent, Remote Intelligence: Average Insight Judgment: Fair [facility] Assessment and Plan [id number] Encounter Date: Dec 10, 2018 [id number] Encounter Time: 10:30 [facility] Plan: Necessary Precautions, Individual/Group Therapy, Admin/Titrate Meds, Educate Patient Tobacco Medications: Not Appropriate Condition Multpiple Antipsychotics Used: No Problems: (1) Alcohol use disorder, severe, dependence (2) Persistent depressive disorder NANCE,ADAM MD Dec 10, 2018 15:39
[2018-12-10] MEDS: NICOTINE INH SYSTEM 10 MG/INH INH PRN (20:45)
[2018-12-11 03:24] VITALS: BP 126/87
[2018-12-11] MEDS: FOLIC ACID 1 MG TAB PO SCH (08:22)
[2018-12-11] MEDS: TRIAMCINOLONE ACE 0.1% CR 15GM TP SCH ×2 (08:22→20:51)
[2018-12-11] MEDS: CITALOPRAM HYDROBROM 20 MG TAB PO SCH (08:22)
[2018-12-11] MEDS: LOSARTAN POTASSIUM 50 MG TAB PO SCH (08:22)
[2018-12-11] MEDS: THIAMINE HCL 100 MG TAB PO SCH (08:22)
--- NOTE | 2018-12-11 11:50 | BHS Progress Note ---
[facility] - Subjective Progress Notes Subjective "I am doing well. I wasn't expecting residential to be a minimum of four months." Plan to discharge tomorrow and [facility] Thursday for residential treatment program Denies urge to drink Denies depression, anxiety Sleep sufficient Suicidal Ideation: None Homicidal Ideation: None [facility] - Objective Physical Exam Vital Signs Medications (Trade) Dose Ordered Sig/Matt Route PRN Reason Start Time Stop Time Status Last Admin Dose Admin Al Hydrox/Mg Hydrox/Simethicone (Maalox(*) 30 ml Udcup (Or Equiv)) 15 ml Q4H PRN PO INDIGESTION 12/06/18 21:45 01/05/19 21:44 12/09/18 21:44 Citalopram Hydrobromide (CeleXA 20 MG TAB (OR EQUIV)) 50 mg QDAY PO 12/07/18 14:30 01/06/19 14:29 12/11/18 08:22 Folic Acid (Folic Acid (*) 1 Mg Tab) 1 mg QDAY PO 12/07/18 09:00 01/06/19 08:59 12/11/18 08:22 Loperamide HCl (Imodium 2 Mg Cap (Or Equiv)) 4 mg ONCE ONCE PO 12/07/18 15:45 12/07/18 15:46 DC 12/07/18 16:11 Losartan Potassium (Cozaar 50 Mg Tab (Or Equiv)) 50 mg QDAY PO 12/08/18 15:00 01/07/19 14:59 12/11/18 08:22 Nicotine (Nicotrol Inhaler 10 Mg/Inh (Or Equiv)) 10 mg Q2H PRN INH NICOTINE REPLACEMENT 12/06/18 23:20 01/05/19 23:19 12/10/18 20:45 Thiamine HCl (Vitamin B-1(*) 100 Mg Tab (Or Equiv)) 100 mg QDAY PO 12/07/18 09:00 01/06/19 08:59 12/11/18 08:22 Triamcinolone Acetonide (Kenalog 0.1%(*) Cream 15 Gm Tube (Or Equiv)) 1 gm BID TP 12/08/18 21:00 01/07/19 20:59 12/11/18 08:22 Deferred Laboratory Tests 12/07/18 16:40: Tuberculin Skin Test 0 Muscle Strength and Tone: WNL Gait and Station: Steady [facility] Medications Reviewed: Side Effects, Benefits of Medication, Risks Allergies Reviewed: Yes Mental Status Exam General Appearance: Casual, Well Groomed, Good Eye Contact, Cooperative, Polite, Good Interaction Speech: Clear, Spontaneous, Normal Rate, Normal Rhythm, Normal Volume, Normal Tone Mood: No Dysthmic/Depressed; Euthymic Affect: Full and Appropriate, Calm; No Sad Thought Process: Organized, Logical, Goal Directed; No Loose Associations, No Flight of Ideas Thought Content: No Suicidal Ideation, No Homicidal Ideation, No Delusions, No Auditory Halllucinations, No Visual Hallucinations, No Thought Broadcasting, No Ideas of Reference, No Obsessions, No Compulsions, No Other Sensorium: Clear Cognition: Alert & Oriented-Person, Alert & Oriented-Place, Alert & Oriented- Time, [id number]-Wplrkgyo-[id number] Memory: Immediate, Recent, Remote Intelligence: Average Insight Judgment: Fair Microbiology Vital Signs Date Time Temp Pulse Resp B/P (MAP) Pulse Ox O2 Delivery O2 Flow Rate FiO2 12/11/18 03:24 98.2 88 15 126/87 (100) 91 Room Air Imaging Laboratory Tests 12/07/18 16:40: Tuberculin Skin Test 0 [facility] Assessment and Plan [id number] Encounter Date: Dec 11, 2018 [id number] Encounter Time: 11:46 [facility] Plan: Necessary Precautions, Individual/Group Therapy, Admin/Titrate Meds, Educate Patient Tobacco Medications: Not Appropriate Condition Multpiple Antipsychotics Used: No Problems: (1) Persistent depressive disorder (2) Alcohol use disorder, severe, dependence (3) Alcohol intoxication Status: Acute Condition Discharge to home tomorrow Residential treatment program Monday 12/11 JOSE KHAN NP Dec 11, 2018 11:49
[2018-12-11 14:10] VITALS: BP 138/88
--- NOTE | 2018-12-11 19:01 | EKG ---
FACILITY: [facility] PATIENT NAME: VENTURA ENRIQUE : [id number] MR: [id number] V: [id number] EXAM DATE: ORDERING PHYSICIAN: JOSE KHAN TECHNOLOGIST: Benjy Campos Reason : prolonged qt OD Blood Pressure : / mmHG Vent. Rate : 089 BPM Atrial Rate : 089 BPM P-R Int : 148 ms QRS Dur : 084 ms QT Int : 358 ms P-R-T Axes : 040 079 057 degrees QTc Int : 435 ms Normal sinus rhythm Normal ECG When compared with ECG of 03-DEC-2017 19:22, No significant change was found Confirmed by FREDDY ROSARIO ([id number] on 12/11/2018 8:37:47 PM Referred By: Confirmed By:FREDDY ROSARIO
[2018-12-11] MEDS: NICOTINE INH SYSTEM 10 MG/INH INH PRN (20:51)
[2018-12-12] MEDS: TRIAMCINOLONE ACE 0.1% CR 15GM TP SCH (08:38)
[2018-12-12] MEDS: FOLIC ACID 1 MG TAB PO SCH (08:38)
[2018-12-12] MEDS: CITALOPRAM HYDROBROM 20 MG TAB PO SCH (08:38)
[2018-12-12] MEDS: THIAMINE HCL 100 MG TAB PO SCH (08:38)
[2018-12-12] MEDS: LOSARTAN POTASSIUM 50 MG TAB PO SCH (08:38)
--- NOTE | 2018-12-12 09:21 | BHS Progress Note ---
S - Subjective Progress Notes Subjective "I've got little bit of nervous energy." Discharging today in plans of going to [facility] tomorrow Sleep variable, discuss sleep study option upon returning from residential rehab Denies depression or thoughts of hurting self Moderate anxiety regarding transfer to residential Denies anger or mood swings Euthymic and optimistic about discharge Denies urge to use etoh Suicidal Ideation: None Homicidal Ideation: None S - Objective Physical Exam Vital Signs Vital Signs Date Time Temp Pulse Resp B/P (MAP) Pulse Ox O2 Delivery O2 Flow Rate FiO2 12/11/18 14:10 98.2 96 18 138/88 (105) 96 Room Air Muscle Strength and Tone: WNL Gait and Station: Steady [facility] Medications Reviewed: Side Effects, Benefits of Medication, Risks Allergies Reviewed: Yes Mental Status Exam General Appearance: Casual, Well Groomed, Good Eye Contact, Cooperative, Polite, Good Interaction Speech: Clear, Spontaneous, Normal Rate, Normal Rhythm, Normal Volume, Normal Tone Mood: No Dysthmic/Depressed; Euthymic Affect: Full and Appropriate, Calm; No Sad Thought Process: Organized, Logical, Goal Directed; No Loose Associations, No Flight of Ideas Thought Content: No Suicidal Ideation, No Homicidal Ideation, No Delusions, No Auditory Halllucinations, No Visual Hallucinations, No Thought Broadcasting, No Ideas of Reference, No Obsessions, No Compulsions, No Other Sensorium: Clear Cognition: Alert & Oriented-Person, Alert & Oriented-Place, Alert & Oriented- Time, [id number]-[id number]-Iueswiqvb Memory: Immediate, Recent, Remote Intelligence: Average Insight Judgment: Fair [facility] Medications (Trade) Dose Ordered Sig/Matt Route PRN Reason Start Time Stop Time Status Last Admin Dose Admin Al Hydrox/Mg Hydrox/Simethicone (Maalox(*) 30 ml Udcup (Or Equiv)) 15 ml Q4H PRN PO INDIGESTION 12/06/18 21:45 01/05/19 21:44 12/09/18 21:44 Citalopram Hydrobromide (CeleXA 20 MG TAB (OR EQUIV)) 50 mg QDAY PO 12/07/18 14:30 01/06/19 14:29 12/12/18 08:38 Folic Acid (Folic Acid (*) 1 Mg Tab) 1 mg QDAY PO 4/23/19 09:00 01/06/19 08:59 12/12/18 08:38 Loperamide HCl (Imodium 2 Mg Cap (Or Equiv)) 4 mg ONCE ONCE PO 12/07/18 15:45 12/07/18 15:46 DC 12/07/18 16:11 Losartan Potassium (Cozaar 50 Mg Tab (Or Equiv)) 50 mg QDAY PO 12/08/18 15:00 01/07/19 14:59 12/12/18 08:38 Nicotine (Nicotrol Inhaler 10 Mg/Inh (Or Equiv)) 10 mg Q2H PRN INH NICOTINE REPLACEMENT 12/06/18 23:20 01/05/19 23:19 12/11/18 20:51 Thiamine HCl (Vitamin B-1(*) 100 Mg Tab (Or Equiv)) 100 mg QDAY PO 12/07/18 09:00 01/06/19 08:59 12/12/18 08:38 Triamcinolone Acetonide (Kenalog 0.1%(*) Cream 15 Gm Tube (Or Equiv)) 1 gm BID TP 12/08/18 21:00 01/07/19 20:59 12/12/18 08:38 Microbiology Laboratory Tests 12/07/18 16:40: Tuberculin Skin Test 0 [facility] Assessment and Plan Npma-[id number] Encounter Date: Dec 12, 2018 [id number] Encounter Time: 09:19 [facility] Plan: Necessary Precautions, Individual/Group Therapy, Admin/Titrate Meds, Educate Patient Tobacco Medications: Not Appropriate Condition Multpiple Antipsychotics Used: No Problems: (1) Persistent depressive disorder Status: Chronic (2) Alcohol use disorder, severe, dependence Status: Chronic (3) Alcohol intoxication Status: Resolved Condition Discharge today Refer to discharge summary dictation for full report JOSE KHAN NP Dec 12, 2018 09:21
[2018-12-12 09:47] VITALS: BP 122/88
[2018-12-12] MEDS ORDERED: FOLI-68 PO (09:52)
[2018-12-12] MEDS ORDERED: THIA100T6 PO (09:54)
[2018-12-12] MEDS ORDERED: NIC10R INH (09:54)
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
== END 2018-12-12 10:25 | disposition home or self-care (01) | DRG 897 ==
LOC: BHS 21:39
PROVIDERS: ADMIT Psychiatry & Neurology Psychiatry; ATTEND Psychiatry & Neurology Psychiatry
DX: F10.230 Alcohol dependence with withdrawal, uncomplicated (principal); Z68.43 Body mass index [BMI] 50.0-59.9, adult; F34.1 Dysthymic disorder; I10 Essential (primary) hypertension; E66.01 Morbid (severe) obesity due to excess calories; Y90.8 Blood alcohol level of 240 mg/100 ml or more; Z62.819 Personal history of unspecified abuse in childhood; Z91.5 Personal history of self-harm
CPT/HCPCS: 86580; 93005